=== PATIENT | female | born 2000 | race Caucasian/White ===

== ENCOUNTER 2021-07-03 07:44 | Inpatient (IN) | payer OTHER ==
[~2021-07-03] VITALS: Ht 167.6 cm; Wt 59.9 kg
[2021-07-03] MEDS ORDERED: PRENATAL CAPLE1 EAC1 PO (11:03)
== END 2021-07-05 14:25 | disposition home or self-care (01) | DRG 833 ==
LOC: OBS/DEL 07:44 → LDR 23:04
PROVIDERS: ADMIT Obstetrics & Gynecology; ATTEND Obstetrics & Gynecology
PROC: 4A1HXCZ Monitoring of Products of Conception, Cardiac Rate, External Approach (ICD-10-PCS; principal; 2021-07-03)
DX: O60.03 Preterm labor without delivery, third trimester (principal); Z3A.32 32 weeks gestation of pregnancy; Z20.822 Contact with and (suspected) exposure to COVID-19

== ENCOUNTER 2021-08-12 07:41 | Inpatient (IN) | payer OTHER ==
[~2021-08-12] VITALS: Ht 167.6 cm; Wt 64.4 kg
[~2021-08-12 07:41] MED LIST: PRENATAL CAPLE1 EAC1 PO
== END 2021-08-15 10:58 | disposition home or self-care (01) | DRG 788 ==
LOC: LDR 07:41 → OB/GYN 07:41
PROVIDERS: ADMIT Obstetrics & Gynecology; ATTEND Obstetrics & Gynecology
PROC: 4A1HXCZ Monitoring of Products of Conception, Cardiac Rate, External Approach (ICD-10-PCS; 2021-08-12)
PROC: 10D00Z1 Extraction of Products of Conception, Low, Open Approach (ICD-10-PCS; principal; 2021-08-12 11:30)
DX: O36.5930 Maternal care for other known or suspected poor fetal growth, third trimester, not applicable or unspecified (principal); Z3A.38 38 weeks gestation of pregnancy; Z37.0 Single live birth; Z20.822 Contact with and (suspected) exposure to COVID-19